=== PATIENT | male | born 1955 | race Caucasian/White ===

== ENCOUNTER 2016-12-16 23:03 | Emergency (ER) | payer OTHER ==
[~2016-12-16] VITALS: Ht 180.3 cm; Wt 55.0 kg
[~2016-12-16 23:03] MED LIST: BENZ1TAB7; LTH150C PO; PROLIX5; QUET25TA26; RESTORIL
[2016-12-16 23:08] VITALS: Ht 180.3 cm; Wt 55.0 kg
[2016-12-17 00:04] LABS: ADD SCAN DIFF NO
[2016-12-17 00:08] LABS: BASOPHIL # 0.1 10^3/ul (0.0-0.1); BASOPHILS % 0.6 % (0.0-2.0); EOSINOPHILS # 0.1 10^3/ul (0.0-0.5); EOSINOPHILS % 0.7 % (0.0-7.0); HEMATOCRIT 44.6 % (42.0-52.0); HEMOGLOBIN 14.6 g/dl (14.0-18.0); LYMPHOCYTES # 2.1 10^3/ul (0.8-2.9); LYMPHOCYTES % 19.5 % (15.0-51.0); MEAN CORPUSCULAR HEMOGLOBIN 32.7 pg (29.0-33.0); MEAN CORPUSCULAR HGB CONC 32.7 g/dl (32.0-37.0); MEAN CORPUSCULAR VOLUME 99.8 fl (82.0-101.0); MEAN PLATELET VOLUME 9.3 fl (7.4-10.4); MONOCYTE # 0.8 10^3/ul (0.3-0.9); MONOCYTES % 7.6 % (0.0-11.0); NEUTROPHIL # 7.7 10^3/ul (1.6-7.5); NEUTROPHILS % 71.2 % (39.0-77.0); PLATELET COUNT 425 10^3/UL (140-415); RED BLOOD COUNT 4.47 10^6/ul (4.70-6.10); WHITE BLOOD COUNT 10.8 10^3/ul (4.8-10.8)
[2016-12-17 00:12] LABS: ADD UMIC YES; URINE BILIRUBIN (Dip) NEGATIVE (NEGATIVE); URINE BLOOD (Dip) NEGATIVE (NEGATIVE); URINE COLOR LT. YELLOW (YELLOW); URINE GLUCOSE (Dip) NEGATIVE (NEGATIVE); URINE KETONES (Dip) NEGATIVE (NEGATIVE); URINE LEUKOCYTE ESTERASE (Dip) NEGATIVE (NEGATIVE); URINE NITRITE (Dip) NEGATIVE (NEGATIVE); URINE TOTAL PROTEIN (Dip) NEGATIVE (NEGATIVE); URINE UROBILINOGEN (Dip) 0.2 E.U./dL (0.1-1.0)
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
[2016-12-17 00:25] LABS: ALANINE AMINOTRANSFERASE 33 IU/L (13-69); ALBUMIN 4.1 g/dl (3.3-4.9); ALBUMIN/GLOBULIN RATIO 1.24; ALKALINE PHOSPHATASE 83 IU/L (42-121); ANION GAP 8 (8-16); ASPARTATE AMINO TRANSFERASE 24 IU/L (15-46); BILIRUBIN,INDIRECT 0.1 mg/dl (0-1.1); BILIRUBIN,TOTAL 0.1 mg/dl (0.2-1.3); BLOOD UREA NITROGEN 14 mg/dl (7-20); CARBON DIOXIDE 34 mmol/L (21-31); CHLORIDE 101 mmol/L (97-110); CREATININE 0.68 mg/dl (0.61-1.24); GLUCOSE 105 mg/dl (70-220); POTASSIUM 4.2 mmol/L (3.5-5.1); SODIUM 139 mmol/L (135-144); TOTAL PROTEIN 7.4 g/dl (6.1-8.1)
[2016-12-17 00:27] LABS: SQUAMOUS EPITHELIAL CELL,UR FEW; URINE RBCS 0-2 /HPF (0)
[2016-12-17 00:28] LABS: BACTERIA,URINE OCCASIONAL; MUCUS,URINE MODERATE
[2016-12-17 01:08] LABS: ACETAMINOPHEN < 10.0 ug/ml (10.0-30.0); ETHANOL < 10.0 mg/dl; SALICYLATE < 1.0 mg/dl (5.0-30.0)
[2016-12-17 01:38] LABS: BARBITURATES Negative (NEGATIVE); BENZODIAZEPINES Negative (NEGATIVE); CANNABINOIDS Negative (NEGATIVE); COCAINE Negative (NEGATIVE); OPIATES Negative (NEGATIVE)
[2016-12-17] MEDS ORDERED: QUETIAPINE 100 MG TAB PO ONE (02:00)
--- NOTE | 2016-12-17 02:14 | ERA ---
ER Documentation Chief Complaint Date/Time DATE: 12/17/16 TIME: 02:13 Chief Complaint suicidal, no plan, frequent previous psych hospitalizations HPI This is a 61-year-old male brought in by rescue for suicidal ideation. Patient has no plan. Patient hearing voices telling him to kill himself. ROS All systems reviewed and are negative except as per history of present illness. Medications Home Meds Reported Medications [Restoril] No Conflict Check 08/18/11 Fluphenazine Hcl* (Prolixin*) 5 Mg Tab 08/18/11 [place] Carbonate* ([place]*) 150 Mg Cap, 150 MG PO 07/14/11 Quetiapine Fumarate* (Seroquel*) 25 Mg Tablet, unknown 07/13/11 Benztropine Mesylate* (Cogentin*) 1 Mg Tab, unknown 07/13/11 Allergies Allergies: Coded Allergies: No Known Allergies (Verified Allergy, 08/18/11) PMhx/Soc Hx Psychiatric Problems: Yes (anxiety, affective disorder) Hx Miscellaneous Medical Probl: Yes Hx Alcohol Use: Yes Hx Substance Use: Yes Hx Tobacco Use: Yes Smoking Status: Current every day smoker Physical Exam Vitals Vital Signs Date Time Temp Pulse Resp B/P Pulse Ox O2 Delivery O2 Flow Rate FiO2 12/16/16 23:08 83 19 131/88 97 Physical Exam Const: [] Head: Atraumatic Eyes: Normal Conjunctiva ENT: Normal External Ears, Nose and Mouth. Neck: Full range of motion..~ No meningismus. Resp: Clear to auscultation bilaterally Cardio: Regular rate and rhythm, no murmurs Abd: Soft, non tender, non distended. Normal bowel sounds Skin: No petechiae or rashes Back: No midline or flank tenderness Ext: No cyanosis, or edema Neur: Awake and alert Psych: Normal Mood and Affect Result Diagram: 12/16/16 2330 12/16/16 233 Results 24 hrs Laboratory Tests Test 12/16/16 23:30 12/16/16 23:40 White Blood Count 10.810^3/ul Red Blood Count 4.4710^6/ul Hemoglobin 14.6g/dl Hematocrit 44.6% Mean Corpuscular Volume 99.8fl Mean Corpuscular Hemoglobin 32.7pg Mean Corpuscular Hemoglobin Concent 32.7g/dl Red Cell Distribution Width 12.0% Platelet Count 62931^3/UL Mean Platelet Volume 9.3fl Neutrophils % 71.2% Lymphocytes % 19.5% Monocytes % 7.6% Eosinophils % 0.7% Basophils % 0.6% Nucleated Red Blood Cells % 0.0/100WBC Neutrophils # 7.710^3/ul Lymphocytes # 2.110^3/ul Monocytes # 0.810^3/ul Eosinophils # 0.110^3/ul Basophils # 0.110^3/ul Nucleated Red Blood Cells # 0.010^3/ul Sodium Level 139mmol/L Potassium Level 4.2mmol/L Chloride Level 101mmol/L Carbon Dioxide Level 34mmol/L Anion Gap 8 Blood Urea Nitrogen 14mg/dl Creatinine 0.68mg/dl Glucose Level 105mg/dl Calcium Level 10.0mg/dl Total Bilirubin 0.1mg/dl Direct Bilirubin 0.00mg/dl Indirect Bilirubin 0.1mg/dl Aspartate Amino Transf (AST/SGOT) 24IU/L Alanine Aminotransferase (ALT/SGPT) 33IU/L Alkaline Phosphatase 83IU/L Total Protein 7.4g/dl Albumin 4.1g/dl Globulin 3.30g/dl Albumin/Globulin Ratio 1.24 Salicylates Level < 1.0mg/dl Acetaminophen Level < 10.0ug/ml Ethyl Alcohol Level < 10.0mg/dl Urine Color LT. YELLOW Urine Clarity CLOUDY Urine pH 8.0 Urine Specific [place] 1.015 Urine Ketones NEGATIVE Urine Nitrite NEGATIVE Urine Bilirubin NEGATIVE Urine Urobilinogen 0.2 E.U./dL Urine Leukocyte Esterase NEGATIVE Urine Microscopic RBC 0-2/HPF Urine Microscopic WBC 0-2/HPF Urine Squamous Epithelial Cells FEW Urine Amorphous Phosphates MODERATE Urine Bacteria OCCASIONAL Urine Granular Casts FEW Urine Mucus MODERATE Urine Hemoglobin NEGATIVE Urine Glucose NEGATIVE% Urine Total Protein NEGATIVE Urine Opiates Screen Negative Urine Barbiturates Negative Urine Amphetamines Screen Negative Urine Benzodiazepines Screen Negative Urine Cocaine Screen Negative Urine Cannabinoids Negative Current Medications Medications (Trade) Dose Ordered Sig/Roger Route PRN Reason Start Time Stop Time Status Last Admin Dose Admin Quetiapine Fumarate (Seroquel) 100 mg ONCE ONCE PO 12/17/16 02:00 12/17/16 02:01 DC 12/17/16 01:58 Procedures/MDM Patient's behavioral symptoms have stabilized while in the department. Patient is medically cleared and appropriate for psychiatric evaluation and work up. No e/o neurologic, toxic, infectious, or metabolic cause. Seen by telemetry psychiatry. Recommended 5150 hold. Given Seroquel to help sleep. Departure Diagnosis: Primary Impression: Suicidal ideation Condition: Serious HOLLEY PARHAM Dec 17, 2016 02:14
[2016-12-17] MEDS ORDERED: HALOPERIDOL 5 MG INJ IM PRN (07:00)
[2016-12-17] MEDS ORDERED: LORAZEPAM 2 MG INJ IM PRN (07:00)
[2016-12-17] MEDS ORDERED: DIPHENHYDRAMINE 50 MG INJ IM ONE (07:00)
[2016-12-17] MEDS ORDERED: ACETAMINOPHEN 325 MG TAB ONE (15:39)
[2016-12-17] MEDS ORDERED: ACETAMINOPHEN 325 MG TAB PO ONE (16:00)
[2016-12-17] MEDS ORDERED: DIPHENHYDRAMINE 25 MG CAP PO ONE (19:30)
[2016-12-18 05:55] VITALS: BP 115/72; PULSE 96; RESP 16; TEMP 98.2
== END 2016-12-18 09:00 ==
LOC: E/R 23:03
DX: F29 Unspecified psychosis not due to a substance or known physiological condition (principal); R45.851 Suicidal ideations; R40.2142 Coma scale, eyes open, spontaneous, at arrival to emergency department; R40.2362 Coma scale, best motor response, obeys commands, at arrival to emergency department; R40.2252 Coma scale, best verbal response, oriented, at arrival to emergency department
CPT/HCPCS: 80053; 80306; 80307; 81001; 85025; J1200; J1630; J2060; 36415; 81003; 96372

== ENCOUNTER 2017-09-25 14:44 | Emergency (ER) | END 2017-09-25 18:22 | disposition home or self-care (01) ==